=== PATIENT | female | born 1985 | race Caucasian/White ===

== ENCOUNTER 2020-10-25 09:23 | Outpatient (CLI) | payer BC ==
--- NOTE | 2020-10-25 11:49 | RAD ---
LUMBAR SPINE 3 VIEWS: Date: 10/25/2020 HISTORY: Back pain. FINDINGS: Vertebral bodies are normal in height. Disc space height appears fairly well preserved. Scoliotic marvin nge convex to the right. Pedicles are intact. IMPRESSION: Mild scoliosis. POS: [id number]
== END 2020-10-25 09:24 | disposition home or self-care (01) ==
LOC: RAD-FRANK 09:23
PROVIDERS: ATTEND Nurse Practitioner Family
DX: M54.30 Sciatica, unspecified side (principal); M41.9 Scoliosis, unspecified
CPT/HCPCS: 72100